=== PATIENT | female | born 1950 | race Caucasian/White ===

== ENCOUNTER → 2017-06-18 | Day surgery (SDC) | payer MEDICARE, OTHER ==
[2017-06-18] VITALS (7 sets, daily range): BP systolic 127–182; BP diastolic 73–88; PULSE 60–69; RESP 10–16; O2SAT 95–98
[~2017-06-18] VITALS: Ht 165.1 cm; Wt 95.0 kg
[~2017-06-18] MED LIST: ALPR1TAB2 PO; Atropine 0.4 mg/mL Inj IVPUSH PRN; CHOL500011 PO; EPHEDrine Sulfate 50 mg/mL Inj IVPUSH PRN; GLPZ5T PO; HYDROmorphone 1 mg/mL Inj IVPUSH PRN; LIOT5TAB6 PO; LIP40 PO; Labetalol 5 mg/mL 20 mL Inj IV PRN; Lactated Ringer's 1,000 ML IV ONE; Lactated Ringer's 1,000 ML IV SCH; Lactated Ringer's 500 ML IV PRN; METF750T PO; METO-369 PO; MetoCLOpramide 5 mg/mL 2 mL Inj IVPUSH PRN; Ondansetron 2 mg/mL 2 mL Inj IVPUSH PRN; Phenylephrine 10,000 mCg/mL Inj IVPUSH PRN; SYN.15T2 PO; VIT1TABL83 PO; fentaNYL-PF 50 mCg/mL 2 mL Inj IVPUSH PRN; fentaNYL-PF 50 mCg/mL 20 mL Inj ONE; levoFLOXacin 500 mg/100 mL D5W Premix IV ONE; levoFLOXacin Inj 500 MG in IV Premix 1 EACH IV SCH; metroNIDAZOLE 500 mg/100 mL NS Premix IV ONE; metroNIDAZOLE Inj 500 MG in IV Premix 1 EACH IV ONE
--- NOTE | 2017-06-18 15:14 | PCM.HPANE ---
Patient Data Surgeon Admitting Provider: Attending Provider:Andriy Billings MD Primary Care Physician:Charlotte Espana MD Other Provider:Claus Daley Anesthesia Reason for Visit Choledocolithiasis Ht/WT & BMI Height (Feet): 5 Height (Inches): 5 Weight (Kilograms): 95 Body Mass Index 34.00 Allergies Coded Allergies: Penicillins (Verified Allergy, Mild, rash, 09/04/16) amoxicillin (Verified Allergy, Unknown, 09/04/16) Past Anesthesia History Anesthesia History: Denies:: Abnormal Airway, Anesthesia Reactions, Difficult Intubation, Fam Anesthesia Reaction, Fam Malignant Hypertherm, Malignant Hyperthermia Diabetes History Hx Diabetes?: Yes Current Bedside Blood Glucose: 168 MRSA MRSA: No Medications Hypertension Medication: Yes Home Meds Incl Beta Tahir: Yes Date Beta Tahir Taken: Jun 18, 2017 Time Beta Tahir Taken: 0800 Reported Medications Levothyroxine (Synthroid)150 Mcg [id number] Mcg PO DAILY Ref 0 09/05/16 Glipizide 5 Mg Tablet5 Mg PO DAILY 30 Days 06/26/16 Alprazolam (Xanax)1 Mg Tablet1 Mg PO BID PRN For Anxiety Ref 0 06/23/16 Metoprolol Succinate ER 50 Mg Tab.er.[id number] Mg PO BID Ref 0 06/23/16 Metformin ER (Glucophage XR)750 Mg [id number] Mg PO TID Ref 0 06/23/16 Liothyronine Sodium (Cytomel)5 Mcg Tablet5 Mcg PO DAILY 06/23/16 Atorvastatin (Lipitor)40 Mg [id number] Mg PO DAILY Ref 0 06/23/16 Discontinued Reported Medications Cholecalciferol (Vitamin D3) (Vitamin D3)5,000 Unit Tablet5,000 Unit PO DAILY 09/01/16 Vit B Comp/C/FA/Iron/Vit E (Vitamin B Complex Tablet)1 Each Tablet1 Each PO DAILY 09/01/16 History History of ENT Problems?: Yes HEENT History: Denies:: Abnormal Airway Difficult Intubation Dysphagia Hearing Problem Denture Type: None Teeth Condition: Within Normal Limits Hx of Heart Problems?: Yes Cardiovascular History: Positive for:: Hypertension Denies:: AICD Atrial Fibrillation Chest Pain Congestive Heart Failure Pacemaker Valvular Heart Disease Other Cardiac History: > 4METS Hx of Respiratory Problem?: No Respiratory History: Denies:: Asthma COPD Chest Surgery Cough Dyspnea Emphysema Hemoptysis Oxygen Administration Pneumonia Pulmonary Embolism Tuberculosis Use of C-PAP Machine Use of Inhalers / NEBS Hx Neurologic Problems?: Yes Neurological History: Positive for:: Headaches Denies:: Alzheimer's Disease CVA Dementia Dizziness Multiple Sclerosis Parkinson's Disease Peripheral Neuropathy Seizures TIA Hx of GI Problems?: Yes Gastrointestinal History: Positive for:: Gall Bladder Disease Hx of Problems?: No Female Hx: Denies:: Currently Endometriosis Pelvic Inflammatory Problems with Breasts? Hx Musculoskeletal Problems?: No Musculoskeletal History: Denies:: Joint Replacement Hx of Psycho/Social Problems?: Yes Psycho Social History: Positive for:: Anxiety Denies:: Hx Depression Hx Surgeries?: Yes (Vielka, bilateral shoulders, tonsils, ) Hx Any Other Health Problems?: Yes Other History: Positive for:: Thyroid Disease Denies:: Cancer Endocrine Disease Hospitalization History Blood Transfusions: Denies:: Blood Transfusions Hx Diabetes: YesBedside Blood Glucose: 168 Hx Alcohol Use: NoHx Substance Use: No Smoking Status: Never Smoker Have You Smoked inLast 12 mo: No Stop/Bang Treated for Sleep Apnea?: No Do You Have a CPAP Machine?: No S-Snoring: Do You Snore Loudly: No T-Tired: feel tired, fatigued: No O-Obsered: Observed not breath: No P-Blood Pressure: treated: Yes B- Body Mass Index > 35 kg/m2: No A- Age over 50: Yes N- Neck Large Circumference: No G- Gender Male: No LAMBERT Total Score: 2 LAMBERT Risk Assessment: Low Risk, <3 Yes Risk Assessment Category Category 1A: Patient has history of documented sleep apnea, and HAS NOT received any narcotic, sedative or anesthesia administration during this stay. Category 1B: Patient has history of documented sleep apnea, and HAS received any narcotic , sedative or anesthesia administration during this stay Category 2: Patient has SUSPECTED Obstructive Sleep Apnea, and HAS received any narcotic , sedative or anesthesia administration during this stay. Category 3: Patient has SUSPECTED Obstructive Sleep Apnea and HAS NOT received narcotic, sedative or anesthesia administration during this stay. Category 4: Outpatient in Procedural Areas with known sleep apnea or who screen positive for High Risk via the STOP/BANG questionnaire. Exam Exam Vital Signs Vital Signs Date Time Temp Pulse Resp B/P Pulse Ox O2 Delivery O2 Flow Rate FiO2 06/18/17 14:42 60 16 157/81 97 Room Air General Appearance: Alert, Oriented X3, Cooperative, No Acute Distress HEENT/AIRWAY: MP 2 Lungs: Clear to Auscultation, Normal Air Movement Heart: Exam Unremarkable, Regular Rate/Rhythm, No Murmurs/Rubs/Gallops Meds/Labs/Diagnostics Bedside Blood Glucose: 168 Plan Impression Patient chart reviewed, patient interviewed and anesthestic plan with risks, benefits, and alternatives discussed, and informed consent obtained. NPO per Anesth. Guidelines: Yes ASA Physical Status: ASA2 Mod Systemic Disease Anesthetic Plan: GA Bene/Risks/Altern/Consents: Yes HP Complete Prior to Induction: Yes Armen Dillon MD Jun 18, 2017 15:14
--- NOTE | 2017-06-18 16:44 | PCM.ANEP1 ---
Post Anesthesia PACU Phase 1 Assessment Vital Signs Vital Signs Date Time Temp Pulse Resp B/P Pulse Ox O2 Delivery O2 Flow Rate FiO2 06/18/17 16:40 69 10 177/73 97 Room Air 06/18/17 16:35 36.3 66 13 182/84 98 Nasal Cannula 4 06/18/17 14:42 60 16 157/81 97 Room Air Anesthetic Administered: GA Level of Alertness: Awake, talking ABERNATHY's with Equal Strength: Yes Pain: No Nausea or Vomiting: No CV Function & Hydration Stable: Yes Airway Device: Endotrachial Tube (removed before PACU) Oxygen Delivery: Nasal Cannula Lungs: Clear to Auscultation, Normal Air Movement PACU Phase 2 Assessment Complications: No Follow up Care: N/A Patient Instructions Provided: N/A Armen Dillon MD Jun 18, 2017 16:44
--- NOTE | 2017-06-18 17:04 | DRSVH ---
PROCEDURE: X-RAY E.R.C. BILIARY DUCTS ([id number]) INDICATIONS: CHOLEDOCOLITHASIS TECHNIQUE: Fluoroscopic spot films were acquired by the gastroenterology service during ERCP procedu re. COMPARISON: None. FINDINGS: The extra hepatic bile duct is prominent and a sweeping balloon catheter is noted. There a re multiple intraluminal filling defects visualized within the mid extrahepatic bile duct as well as the distal common bile duct on several images which could be related to gas bubbles or retained stone s. IMPRESSION: Prominence of the extrahepatic bile duct with multiple intraluminal filling defects suspi cious for gas bubbles versus retained stones. Recommend correlation with real-time examination. Dictated by: Johnathan LOPEZ Interpreted: Dilia Jackson MD on 06/18/2017 at 16:41 Approved by: Dilia Jackson M.D. on 06/18/2017 at 17:02
--- NOTE | 2017-06-19 02:03 | ENDO ---
[address] [address] ENDOSCOPY PROCEDURE PATIENT: CINDY ZARAGOZA : 1950 MR#: [id number] ADMIT: 06/18/2017 JOB ID: [id number] DATE OF PROCEDURE: 06/18/2017 PRIMARY PROVIDER: Charlotte Espana MD. PROCEDURE: Endoscopic retrograde cholangiopancreatography with biliary sphincterotomy and stone extraction. INDICATIONS: A 67-year-old female with recurrence of choledocholithiasis. She had an episode recently that sounded like transient cholangitis, but all symptoms completely resolved and liver tests were coming down nicely. MRCP, however, confirmed persistence of stones in her biliary tree. EQUIPMENT: [id number]. SEDATION: General anesthesia with endotracheal intubation as provided by Armen Dillon MD. COMPLICATIONS: None identified. PROCEDURE INFORMATION: After the risks and benefits were explained, written and verbal informed consent was obtained. The patient was brought into the endoscopy suite and placed into the prone position following sedation and intubation. The scope was introduced in the mouth through the bite block and advanced under indirect visualization to stomach. From there, the scope was guided into the second portion of the duodenum. The major papilla was identified, but did not appear to be emanating any bile whatsoever. Using an Olympus 20 mm traction sphincterotome preloaded with an 0.025 short straight VisiGlide wire, we were able to fairly easily obtain biliary access. The wire was advanced deep into the intrahepatics. The catheter was then pushed over the wire. Initial contrast injection demonstrated the presence of filling defect consistent with MRCP findings. Biliary sphincterotomy was extended through what appeared to be a slightly irregular and stenosed major papilla with a small benign polypoid structure at the apex of the previous sphincterotomy. The extension of the sphincterotomy through the repeat stenosis demonstrated a gush of green bile. We then exchanged the sphincterotome for the balloon-tipped catheter (with contrast port below the balloon). At the 8.5 mm setting. The balloon fairly easily came through the sphincterotomy and actually engaged some stone debris. We then swept the duct multiple times using the balloon at the 8.5 setting from low down in the duct and cleared some sludge debris and soft brown to yellow cholesterol containing stones. These were delivered into the duodenum. We then upsized the balloon to 11.5 mm to sweep from a more proximal location and did this on several occasions, yielding further soft sludge-like stone debris. We continued to do this until there was no further sludge debris coming out with the balloon at the 11.5 mm setting. With application of suction in the duodenum, bile and contrast could easily come out the re-cut sphincterotomy. After we removed the copious amounts of sludge and stone debris, final cholangiographic imaging did not suggest any further retained stones and we; therefore, removed the catheter and wire. The scope was withdrawn back into the stomach. A biopsy was taken from the antrum of the stomach. The stomach was decompressed. The scope was then removed from the patient who tolerated the procedure well. The patient had a 100 mg indomethacin suppository placed periprocedure to prophylax against post ERCP pancreatitis. The patient was extubated and transferred to the PACU in stable condition. FINDINGS: As above, there was evidence of erosive gastropathy which was biopsied as described above. The major papilla appeared consistent with a prior sphincterotomy, but there was no bile seen coming through. It looked as though it had restenosed. There was a tiny polypoid structure at the apex of the sphincterotomy that did not appear to be neoplastic in nature. We were able to gain access as described above and the sphincterotomy was extended using the sphincterotome. With the balloon-tipped catheter, we delivered copious amounts of soft stone debris into the duodenum. Final imaging did not identify any evidence of retained stones and I did not appreciate any stricturing at the level of the distal duct. ENDOSCOPIC DIAGNOSES: 1. 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 2. Choledocholithiasis, status post balloon-tipped extraction. 3. Erosive gastropathy. RECOMMENDATIONS: 1. Await histopathology. 2. Minimize NSAIDs if at all possible. 3. N.p.o. x5 hours. 4. Okay to start clear liquids this evening. 5. Advance diet tomorrow morning as able. 6. I have placed an order here for some IV antibiotics considering the fairly profound sludge debris seen during today's case. I think it would be reasonable then to continue antibiotics for another couple of days, and sent a prescription to her pharmacy. 7. Repeat LFTs in a couple of weeks.
--- NOTE | 2017-06-20 15:30 | PATH ---
SURGICAL PATHOLOGY Attending Physician:Kaitlin Garcia CASE STATUS: Signed Out PATIENT NAME: CINDY ZARAGOZA PID: [id number] : 1950 DATE COLLECTED:06/18/2017 00:00 SPECIMEN: Stomach, Antrum, Biopsy CLINICAL HISTORY: 1). GASTRIC ANTRUM EROSION BIOPSY, RULE OUT H.PYLORI FINAL DIAGNOSIS: Gastric Antrum Erosion, Biopsy: Portion of gastric antral-type mucosa with reactive gastropathy. No definite H. pylori organisms identified by H&E stain. Immunohistochemistry studies pending; results will be reported as an addendum. Negative for intestinal metaplasia, dysplasia, and malignancy. ICD10: K29.7 GROSS DESCRIPTION: The specimen is received in one formalin filled container labeled with the patient's name, sublabeled "gastric antrum erosion" and consists of a less than 0.1 CM portion of tissue which is entirely submitted in one cassette. 06/19/2017CA ICD-9 CODES: CPT CODES: 1: 76755, 29407 PROCEDURE/ADDENDA: Addendum SPI Addendum Diagnosis An immunohistochemical stain was performed to evaluate for Helicobacter organisms and is NEGATIVE. A control stain showed appropriate reactivity. Addendum Comment * This test was developed and its performance characteristics determined by [employer]. It has not been cleared or approved by the U.S. Food and Drug Administration. The FDA has determined that such clearance or approval is not necessary. This test is used for clinical purposes. It should not be regarded as investigational or for research. Electronically Signed Out Uma Martínez MD Electronically Signed Out Darleen Rankin MD [facility] Pathology [facility] [address], [place] [address] Technical component performed at [facility], [address] [place] [address] Ave[address], [place], [address]
== END | disposition home or self-care (01) ==
LOC: END 00:28
PROVIDERS: ATTEND Internal Medicine Gastroenterology
DX: K80.50 Calculus of bile duct without cholangitis or cholecystitis without obstruction (principal); K31.9 Disease of stomach and duodenum, unspecified; I10 Essential (primary) hypertension; F41.9 Anxiety disorder, unspecified; R51 Headache; Z79.84 Long term (current) use of oral hypoglycemic drugs; Z79.899 Other long term (current) drug therapy
CPT/HCPCS: 43264; 43277; 74328; 88305; 88342; J2250; J3010; J3490; J7120; Q9967